=== PATIENT | male | born 1950 | race Caucasian/White ===

== ENCOUNTER 2018-08-26 10:23 | Outpatient (CLI) | payer MEDICARE ==
--- NOTE | 2018-08-26 22:06 | RAD ---
THORACIC SPINE THREE VIEWS: 08/26/18 Slight curvature of the spine is present but may be positional. No spinal fracture was seen. The disc spaces are normal in height. There are rather extensive degenerative changes with osteophytes in the lower thoracic spine. No bony destructive lesions are seen. 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 POS: HOME
== END 2018-08-26 10:24 | disposition home or self-care (01) ==
LOC: BURRAD 10:23
PROVIDERS: ATTEND Anesthesiology
DX: M54.6 Pain in thoracic spine (principal); M47.814 Spondylosis without myelopathy or radiculopathy, thoracic region
CPT/HCPCS: 72072

== ENCOUNTER 2019-12-15 09:14 | Outpatient (CLI) | payer MEDICARE ==
--- NOTE | 2019-12-15 14:05 | RAD ---
RIGHT SHOULDER 3 VIEWS: DATE: 12/15/2019. FINDINGS: No fracture was seen. There is no dislocation. There is some irregularity of the glenohumeral joint suggesting there may be some mild degenerative change here. There are degenerative changes in the A C joint. IMPRESSION: No acute finding. POS: HOME
== END 2019-12-15 09:15 | disposition home or self-care (01) ==
LOC: BURRAD 09:14
PROVIDERS: ATTEND Family Medicine
DX: M25.511 Pain in right shoulder (principal)

== ENCOUNTER 2022-12-27 09:30 | Outpatient (CLI) | payer OTHER | END 2022-12-27 09:31 | disposition home or self-care (01) | LOC: BURRAD 09:30 | PROVIDERS: ATTEND Family Medicine | DX: M25.551 Pain in right hip (principal); M16.11 Unilateral primary osteoarthritis, right hip ==

== ENCOUNTER 2025-05-03 08:48 | Outpatient (CLI) | payer OTHER | END 2025-05-03 08:49 | disposition home or self-care (01) | LOC: BURCT 08:48 | PROVIDERS: ATTEND Nurse Practitioner Family | DX: R10.31 Right lower quadrant pain (principal); M25.551 Pain in right hip; M16.11 Unilateral primary osteoarthritis, right hip | CPT/HCPCS: 74176 ==

== ENCOUNTER 2025-05-03 09:50 | Emergency (ER) | payer OTHER ==
[2025-05-03] MEDS ORDERED: Acetaminophen 500 MG TAB ONE (10:31)
[2025-05-03] MEDS ORDERED: Ketorolac Tromethamine 30 MG (1 mL) VIAL ONE (10:32)
[2025-05-03] MEDS ORDERED: Gabapentin 300 MG CAP ONE (10:32)
== END 2025-05-03 12:00 | disposition home or self-care (01) ==
LOC: BURERS 09:50
DX: S22.41XA Multiple fractures of ribs, right side, initial encounter for closed fracture (principal); E11.9 Type 2 diabetes mellitus without complications; I10 Essential (primary) hypertension; W18.39XA Other fall on same level, initial encounter; Y92.481 Parking lot as the place of occurrence of the external cause; R10.31 Right lower quadrant pain; M25.551 Pain in right hip; M16.11 Unilateral primary osteoarthritis, right hip
CPT/HCPCS: 71250; 72125; 74176; 96374; J1885